=== PATIENT | male | born 1990 | race Caucasian/White ===

== ENCOUNTER 2024-10-17 09:28 | Emergency (ER) | payer BC ==
[~2024-10-17] VITALS: Ht 175.3 cm; Wt 103.9 kg
[2024-10-17 09:48] VITALS: PULSE 86; RESP 18; TEMP 98.5; O2SAT 99
[2024-10-17] MEDS ORDERED: AMOX TR-K CLV1 EAC2 PO (10:09)
[2024-10-17] MEDS ORDERED: ULTRAM 50MG50 MG PO (10:09)
[2024-10-17] MEDS: LIDOCAINE HCL 1% LOCAL INJ 20 ML VIAL INJ STA (10:13)
== END 2024-10-17 10:22 | disposition home or self-care (01) ==
LOC: ER 09:37
DX: L02.212 Cutaneous abscess of back [any part, except buttock and flank] (principal)
CPT/HCPCS: 99283